=== PATIENT | female | born 1985 | race Caucasian/White ===

== ENCOUNTER 2021-07-24 07:13 | Inpatient (IN) ==
--- NOTE | 2021-07-19 19:12 | History & Physical Report ---
Date of Service July 19, 2021 Assessment & Plan (1) Encounter for supervision of normal in multigravida: (2) Preeclampsia: (3) Anxiety: Plan: Discussed with patient her history and diagnoses leading to planned delivery at 37wks. Given prior h/o c/s, patient desires repeat c/s. Risks, alternatives and complications reviewed and patient desires to proceed and consent reviewed and signed. Discussed her past c/s and the significant anxiety she feels when on the OR table before baby delivered. She states she would benefit from reassurance that she is doing well with anesthesia and comfort measures. She will remind us of this helpful measure on day of surgery. PATs today. OR in near future. History of Present Illness Chief Complaint: planned c/s Primary Care Provider: Nayeli Arboleda 36yo at 37 weeks on day of admission for planned repeat c/s in background of preeclampsia. Patient has carried diagnosis of preeclampsia without severe features. Notes prior c/s x 2 and desires repeat. Declines sterlization. Denies rodriguez, visual change or ruq pain. No worsening swelling today. +FM. PNC c/b 1. preeclampsia --growth us aga, nsts 2x/wk, wkly labs ok 2. prior c/s x 2 3. 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, spouse neg carrier PNL rh pos, ri, gbs neg OBH: c/s x 2, first breech, 2nd TOLAC but got chorio after 2d induction GYNH: nl paps, no stds Allergies Allergy/AdvReac Type Severity Reaction Status Date / Time No Known Allergies Allergy Verified 07/19/21 16:18 Home Medications Medication Instructions Recorded Confirmed Type prenat.vits,vladislav,izw-fumm-rpqoh 1 tab PO DAILY 05/12/20 07/19/21 History breast pump #1 ea 06/01/21 07/19/21 Rx Patient History Medical History History of chicken pox Surgical History S/P section S/P dilatation and curettage S/P tonsillectomy and adenoidectomy Family History Mother Hypertension Grandmother (Maternal) Hypertension Migraine headache Heart disease Grandfather (Maternal) Heart disease Denies family history of Ovarian cancer Prostate cancer Breast cancer Colorectal cancer Social History Smoking Status: Never smoker Hx Alcohol Use: No Hx Substance Use: No Preferred Language: Slovak 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 Beliefs That Will Affect Care: None marital status: Single marital status details: Cruzito Blood (35) [phone] Current Living Situation: Family Current Living Situation Comment: Lives with FOB, kids current occupational status: student 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
[~2021-07-24 07:13] MED LIST: CITRIC ACID/SODIUM CITRATE 15 ML UDC PO SCH
[2021-07-24] MEDS ORDERED: OXYTOCIN 10 UNITS/ML VIAL ONE (07:35)
[2021-07-24] MEDS ORDERED: SODIUM CHLORIDE 0.9% INJ 10 ML VIAL ONE (07:35)
[2021-07-24] MEDS ORDERED: fentaNYL citrate 100 MCG/2 ML VIAL ONE (07:35)
[2021-07-24] MEDS ORDERED: MoRPHine SULFATE PF 1 MG/ML 10 ML AMP/VIAL ONE (07:35)
[2021-07-24] MEDS ORDERED: ONDANSETRON INJ 2 MG/ML 2 ML VIAL ONE (07:35)
[2021-07-24] MEDS ORDERED: LACTATED RINGER'S 1,000 ML IV SCH ×3 (07:45→10:53)
[2021-07-24 07:52] LABS: Hematocrit (blood only) 32.6 % (37-47); Mean Corpuscular Hgb Conc 33.7 g/dL (32-36); Mean Platelet Volume 11.6 fL (7.4-10.4); Platelet Count 155 K/uL (130-400); RDW Coefficient of Variation 14.4 % (11.5-14.5); RDW Standard Deviation 44.7 fL (36.4-46.3); Red Blood Count 3.79 M/uL (4.2-5.4)
--- NOTE | 2021-07-24 08:56 | Anesthesiology Consultation ---
Date of Service July 24, 2021 Assessment & Plan (1) Encounter for pre-operative examination: Chart Review Chart Review: Acceptable Risk for Surgery and Patient NOT seen in Pre Admission Testing Consults Requested none History Surgery Operation Date: 07/24/21 09:20 Proposed Procedures p Section (Delivery of Baby Through Abdominal Incision) in LD - Brooke Ojeda MD, FACOG Operation Date: 08/07/21 07:30 Proposed Procedures p Section (Delivery of Baby through Abdominal Incision) - Suzette Cadet MD Height/Weight Height: 5 ft 6 in Weight: 102.965 kg Allergies Allergy/AdvReac Type Severity Reaction Status Date / Time No Known Allergies Allergy Verified 07/20/21 15:02 Medications Home Medications Medication Instructions Recorded Confirmed Last Taken prenat.vits,vladislav,hix-adkg-vbxiv 1 tab PO QAM 05/12/20 07/20/21 07/02/21 22:15 breast pump #1 ea 06/01/21 07/19/21 Unknown diphenhydramine HCl 25 mg capsule 25 mg PO HS PRN 07/20/21 07/20/21 Unknown (Benadryl) NPO Date Last Intake of Fluids: 07/23/21 Time Last Intake of Fluids: 22:30 Date Last Intake of Solids: 07/23/21 Time Last Intake of Solids: 16:00 Past Medical History Medical History Anxiety History of chicken pox Migraine Past Family History Family History Mother Hypertension Grandmother (Maternal) Hypertension Migraine headache Heart disease Grandfather (Maternal) Heart disease Denies family history of Ovarian cancer Prostate cancer Breast cancer Colorectal cancer Past Surgical History Surgical History S/P section X 2 S/P dilatation and curettage S/P tonsillectomy and adenoidectomy Age 13 Social History Smoking Status: Never smoker Do You Dip or Chew Tobacco: No Hx Alcohol Use: Yes Alcohol type: wine alcohol intake frequency: other Alcohol Intake Frequency Comment: 1 X A MONTH Hx Substance Use: No substance use type: does not use Physical Exam Vital Signs Last Vital Signs Temp 36.7 C 07/24/21 07:33 Pulse 93 H 07/24/21 07:33 Resp 20 07/24/21 07:33 BP 144/99 H 07/24/21 07:33 Testing Laboratory Results 07/24/21 07:30 Blood Type O Positive 07/24/21 07:28 Antibody Screen NEGATIVE 07/24/21 07:28
[2021-07-24] MEDS ORDERED: HYDROmorphone INJ 0.5 MG/0.5 ML SYR IV PRN (10:27)
[2021-07-24] MEDS ORDERED: MoRPHine SULFATE PF 1 MG/ML 10 ML AMP/VIAL INT SPINAL ONE (10:27)
[2021-07-24] MEDS ORDERED: NALOXONE HCL 0.08 MG in SYRINGE 1.8 ML IV PRN (10:27)
[2021-07-24] MEDS ORDERED: ACETAMINOPHEN 1000 MG/100 ML IV IV PRN (10:27)
[2021-07-24] MEDS ORDERED: NALOXONE HCL 1 MG in SODIUM CHLORIDE 0.9% 1000ML 1,000 ML IV PRN (10:27)
[2021-07-24] MEDS ORDERED: NALOXONE HCL 0.4 MG/1 ML VIAL/CARP IV PRN (10:27)
[2021-07-24] MEDS ORDERED: ONDANSETRON INJ 2 MG/ML 2 ML VIAL IV PRN (10:27)
[2021-07-24] MEDS ORDERED: LACTATED RINGER'S 500 ML IV PRN (10:27)
[2021-07-24] MEDS ORDERED: ePHEDrine sulfate 50 MG/ML AMP IV PRN (10:27)
[2021-07-24] MEDS ORDERED: NO NARCOTICS OR SEDATIVES SCH (10:30)
[2021-07-24] MEDS ORDERED: DC INTRASPINAL MORPHINE SCH (10:30)
[2021-07-24] MEDS ORDERED: SODIUM CHLORIDE 0.9% 1000ML 1,000 ML IV SCH (10:30)
--- NOTE | 2021-07-24 10:33 | Post Operative Brief Note ---
PG Immediate Post Op with CF Date of Surgery July 24, 2021 Pre & Post Diagnosis Operation Date: 07/24/21 09:20 Pre-Op Diagnosis: Prior section x2, desires repeat Preemplampsia 37 weeks EGA Post-Op Diagnosis: same Operation Date: 08/07/21 07:30 <No data on this case meets the specified criteria> I identified the patient and participated in the time-out.: Yes Procedure Operation Date: 07/24/21 09:20 <No data on this case meets the specified criteria> Repeatl Low Transverse Section Surgeon Brooke Ojeda MD, FACOG Chemical Lab Technician Dr. Bradford Estimated Blood Loss 600 Findings Consistent with Post-Op Diagnosis (viable male , apgars pending. normal uterus, tubes and ovaries bilaterally) Fluids 1600 Specimens Specimen Description: placenta-hold cord blood Drains Navas Catheter Anesthesia Type Spinal Complications none Disposition Accompanied Patient To Recovery: No Disposition: L&D
--- NOTE | 2021-07-24 10:35 | Operative Report ---
PG Post Operative Report Pre & Post Diagnosis Operation Date: 07/24/21 09:20 Pre-Op Diagnosis: Prior section x2, desires repeat Preemplampsia 37 weeks ega Post-Op Diagnosis: same Operation Date: 08/07/21 07:30 <No data on this case meets the specified criteria> I identified the patient and participated in the time-out.: Yes Procedure Operation Date: 07/24/21 09:20 <No data on this case meets the specified criteria> Repeat Low Transverse Section Surgeon Brooke Ojeda MD, FACOG Classifier Operator Dr. Bradford Estimated Blood Loss 600 Findings Consistent with Post-Op Diagnosis (viable male infant, apgars pending. normal uterus, tubes and ovaries bilaterally) Fluids 1600 Specimens placenta hold cord blood Drains foster Anesthesia Type Spinal Complications none Disposition Accompanied Patient To Recovery: No Disposition: L&D Indications 36yo at 37wks ega with diagnosis of preeclampsia without severe features for planned c/s due to prior c/s x 2, desires repeat. Consent signed. Description of Procedure The patient was taken to the operating room and identified. After adequate anesthesia was obtained, she was placed in the supine position with a leftward tilt on the operating table and prepped and draped in the usual sterile fashion. A foster catheter had already been placed. The knife was used to create a Pfannensteil skin incision that was carried down to the underlying layer of fascia. The fascia was nicked in the midline and this opening was extended laterally using Kevin scissors. Abi clamps were placed on the superior and inferior aspect of the fascial incision tenting it upward and the underlying rectus muscles were dissected off the overlying fascia both sharply and bluntly using Kevin scissors. The rectus muscles were bluntly in the midline. The peritoneal cavity was bluntly entered into. This opening was stretched. The bladder blade was placed. The vesicouterine peritoneum was elevated and opened up into and the bladder flap was created digitally and bladder blade was replaced. The knife was used to create a hysterotomy and this opening was stretched. The operators hand was placed through the hysterotomy and the bladder blade was removed. The head was elevated and flexed and with fundal pressure the head was delivered. The shoulders and body were rapidly delivered. The cord was clamped and cut and the 's mouth and nares were bulb suction. The [facility]. Cord blood was obtained. The placenta was manually expressed. The uterus was exteriorized and cleared of all clots and debris. Dilute IV Pitocin was begun. The uterine tone was improving. The hysterotomy was closed in a running interlocking fashion using 0 Vicryl followed by a second imbricating layer of 0 Vicryl. The hysterotomy was not hemostatic at midline and so additional figure of eight suture placed for excellent hemostasis. The posterior culdesac was suctioned. The uterus was returned to the abdomen. The gutters were cleared of all clots and debris. The hysterotomy was reinspected and noted to be hemostatic. The fascia was then closed in running fashion using 0 Vicryl. The subcutaneous fat was copiously irrigated and reapproximated using 2-0 chromic. The skin was closed in a subcuticular fashion using 4-0 Vicryl. At this point the procedure was terminated. The patient was transferred to the recovery room in stable condition. All sponge, lap and needle counts are correct x2. I attest to the content of the Intraoperative Record and any orders documented therein. Any exceptions are noted below. OB Procedure Charges 46559
[2021-07-24] MEDS ORDERED: ePHEDrine sulfate 50 MG/ML SYR ONE (10:38)
[2021-07-24] MEDS ORDERED: SENNA 8.6 MG TAB PO PRN (10:53)
[2021-07-24] MEDS ORDERED: SUPERCREAM 0.870% 15 GM JAR EXT PRN (10:53)
[2021-07-24] MEDS ORDERED: DIPHTHERIA/TETANUS/PERTUSSIS 0.5 ML SYR/VIAL IM ONE (10:53)
[2021-07-24] MEDS ORDERED: BENZOCAINE 20% AER SPR 82.5 GM CAN EXT PRN (10:53)
[2021-07-24] MEDS ORDERED: MAGNESIUM HYDROXIDE SUSP 30 ML UDC PO PRN (10:53)
[2021-07-24] MEDS ORDERED: HYDROCORTISONE ACETATE 25 MG SUPP PR PRN (10:53)
[2021-07-24] MEDS: diphenhydrAMINE 50 MG/ML VIAL IV PRN ×2 (11:14→19:06)
[2021-07-24] MEDS: OXYTOCIN 20 UNITS in LACTATED RINGER'S 1,000 ML IV SCH ×2 (12:11→20:10)
--- NOTE | 2021-07-24 12:53 | Anesthesiology Progress Note ---
Date of Service July 24, 2021 Anesthesia Post Procedure Vital Signs Vital Signs: Temp Pulse Resp BP Pulse Ox 07/24/21 12:46 98 H 97 07/24/21 12:45 90 136/65 07/24/21 12:41 86 97 07/24/21 12:36 88 98 07/24/21 12:35 86 139/67 07/24/21 12:31 82 97 07/24/21 12:26 88 97 07/24/21 12:25 83 16 121/80 07/24/21 12:21 77 98 07/24/21 12:16 87 98 07/24/21 12:15 74 121/80 07/24/21 12:11 78 97 07/24/21 12:06 82 97 07/24/21 12:05 82 117/77 07/24/21 12:01 78 96 07/24/21 11:56 82 96 07/24/21 11:55 36.7 C 75 20 118/75 07/24/21 11:51 85 94 07/24/21 11:46 86 97 07/24/21 11:45 88 18 125/84 07/24/21 11:41 88 94 07/24/21 11:36 77 96 07/24/21 11:35 82 16 124/79 07/24/21 11:31 85 96 07/24/21 11:26 76 97 07/24/21 11:25 18 123/63 07/24/21 11:21 85 95 07/24/21 11:16 87 95 07/24/21 11:15 83 18 126/67 07/24/21 11:11 78 93 07/24/21 11:06 74 98 07/24/21 11:05 74 20 115/65 07/24/21 11:01 85 92 07/24/21 10:56 72 98 07/24/21 10:55 36.5 C 70 18 107/61 07/24/21 10:51 77 98 07/24/21 10:47 69 107/64 92 07/24/21 10:46 67 98 07/24/21 09:16 83 135/83 07/24/21 07:33 36.7 C 93 H 20 144/99 H Transfer of Care Handoff Completed per policy Notes Mental Status: alert / awake / arousable and participated in evaluation Nausea / Vomiting: adequately controlled Pain: adequately controlled Airway Patency, RR, SpO2: stable & adequate BP & HR: stable & adequate Hydration State: stable & adequate Neuraxial Anesthesia: was administered and sensory block is resolving Anesthetic Complications: no major complications apparent and Pt Satisfied with anesthetic care
[2021-07-24] MEDS: KETOROLAC 30 MG/ML VIAL IV PRN ×2 (13:32→23:40)
[2021-07-24] MEDS: NALBUPHINE HCL INJ 10 MG/ML AMP IV PRN ×3 (14:10→20:31)
[2021-07-24] MEDS ORDERED: SODIUM CHLORIDE 0.9% 250 ML IV PRN (15:35)
[2021-07-24] MEDS: SIMETHICONE 80 MG CHEW PO SCH ×3 (17:38→20:10)
[2021-07-24] MEDS: DOCUSATE SODIUM 100 MG CAP PO SCH (20:10)
[2021-07-25] MEDS ORDERED: diphenhydrAMINE Capsule 25 MG CAP PO PRN (04:30)
[2021-07-25] MEDS ORDERED: diphenhydrAMINE 50 MG/ML VIAL IV PRN (04:30)
[2021-07-25] MEDS ORDERED: ZOLPIDEM TARTRATE 5 MG TAB PO PRN (04:30)
[2021-07-25] MEDS ORDERED: ONDANSETRON INJ 2 MG/ML 2 ML VIAL IV PRN (04:30)
[2021-07-25] MEDS ORDERED: PROMETHAZINE HCL 25 MG in SODIUM CHLORIDE 0.9% 50 ML IV PRN (04:30)
[2021-07-25] MEDS ORDERED: KETOROLAC 30 MG/ML VIAL IV PRN (04:30)
[2021-07-25] MEDS: oxyCODONE/ACETAMINOPHEN 5mg/325mg TAB PO PRN (05:26)
[2021-07-25] MEDS: IBUPROFEN 600 MG TAB PO PRN ×3 (05:27→19:33)
--- NOTE | 2021-07-25 06:48 | Obstetrical Progress Note ---
Date of Service <Dario Mohamud DO - Last Filed: 07/25/21 08:30> July 25, 2021 Assessment & Plan <Dario Mohamud DO - Last Filed: 07/25/21 08:30> (1) Encounter for care and examination after delivery: 36 yo post op day 1 from , doing well. -Continue routine post care. - vital sings reviewed and WNL. (Tmax 37.0) -Blood type O+, GBS -, Rubella Immune. -Encourage ambulation, monitor and control pain with Motrin, tylenol PRN, resume regular diet, monitor lochia. -encourage breast feeding -Discussed wound care with patient and recommended pads for her incision for the next few weeks. <Haider Bradford MD - Last Filed: 07/25/21 08:31> (1) Encounter for care and examination after delivery: Subjective <Dario Mohamud - Last Filed: 07/25/21 08:30> Ambulation: ambulating normally Voiding: no voiding problems Passing Gas:: Yes Diet Tolerance:: regular diet Lochia:: Small Feeding Type:: breast feeding (both breast feeding and bottle feeding) Current Pain Level(1-10): 0 Review of Systems Denies fever, chills, sweats Denies shortness of breath, difficulty breathing, chest pain, palpitations, chest pressure. Denies breast pain. Denies dysuria. Denies changes in vision. Headache this morning but better now. +itchy at legs and face from , but coming down. Physical Exam <Dario Mohamud DO - Last Filed: 07/25/21 08:30> General: Alert, oriented. No acute distress. Cardiac: Regular rate and rhythm, no murmurs/rubs/gallops. Respiratory: Clear to auscultation bilaterally a/p, no wheezes/rales/rhonchi. No increased work of breathing. Symmetrical chest rise. No respiratory distress. Abdomen: Soft, nontender, nondistended. Bowel sounds present. Uterus: Uterine fundus firm, palpable at umbilicus. Surgical scar clean and healing well, one area <1mm mild bleed at right side of scar. Lower Extremities: No lower extremity edema or swelling. No deep calf pain. Lorna's negative bilaterally Results & Data ([facility]) <DO Dieter Mendoza Last Filed: 07/25/21 08:30> Vital Signs (Past 12 Hours) Vital Signs Temp Pulse Pulse Pulse Resp BP Pulse Ox 07/25/21 04:35 36.6 C 81 18 109/72 100 07/25/21 04:27 18 100 07/25/21 03:30 18 99 07/25/21 02:47 18 96 07/25/21 01:15 18 97 07/25/21 00:15 18 97 07/24/21 23:45 36.9 C 74 18 110/74 99 07/24/21 22:00 16 99 07/24/21 21:00 16 98 07/24/21 20:00 16 100 07/24/21 19:10 37.0 C 75 16 119/74 100 07/24/21 19:00 16 100 <Haider Bradford MD - Last Filed: 07/25/21 08:31> Co-Signing Physician Notes Patient seen and evaluated and agree with the above findings and plan. Routine care Resident Activity Tracking <Dario Mohamud DO - Last Filed: 07/25/21 08:30> Resident Involvement: Resident Care Provided Care Provided: OB Delivery
[2021-07-25 07:44] LABS: Basophils # (auto) 0.02 K/uL (0-0.2); Basophils % (auto) 0.2 %; Eosinophils # (auto) 0.16 K/uL (0-0.5); Eosinophils % (auto) 1.9 %; Hemoglobin 9.9 g/dL (12.0-16.0); Immature Granulocytes # (auto) 0.03 K/uL (0.00-0.02); Immature Granulocytes % (auto) 0.4 %; Lymphocytes # (auto) 1.58 K/uL (1.2-3.4); Lymphocytes % (auto) 19.2 %; Mean Corpuscular Hemoglobin 29.1 pg (25-34); Mean Corpuscular Volume 88.2 fL (80-100); Mean Platelet Volume 11.4 fL (7.4-10.4); Monocytes % (auto) 9.7 %; Neutrophils # (auto) 5.65 K/uL (1.4-6.5); Neutrophils % (auto) 68.6 %; Platelet Count 136 K/uL (130-400); RDW Coefficient of Variation 14.6 % (11.5-14.5); White Blood Count 8.24 K/uL (4.8-10.8)
[2021-07-25] MEDS: SIMETHICONE 80 MG CHEW PO SCH ×4 (08:20→19:59)
[2021-07-25] MEDS: PRENATAL VITAMIN 1 TAB PO SCH (08:20)
[2021-07-25] MEDS: FERROUS SULFATE 325 MG TAB PO SCH (08:20)
[2021-07-25] MEDS: DOCUSATE SODIUM 100 MG CAP PO SCH ×2 (08:20→19:59)
--- NOTE | 2021-07-26 05:33 | Obstetrical Progress Note ---
Date of Service <Dario Arcehernandotom - Last Filed: 07/26/21 07:10> July 26, 2021 Assessment & Plan <Dario Mohamud - Last Filed: 07/26/21 07:10> (1) Encounter for care and examination after delivery: 36 yo post op day 2 from , doing well. -Continue routine post care. - vital sings reviewed and WNL. (Tmax 37.0) -Blood type O+, GBS -, Rubella Immune. -Encouraged ambulation, especially with patient feeling bloated. Monitor and control pain with Motrin, tylenol PRN, resume regular diet, monitor lochia. -encourage breast feeding -Discussed wound care with patient and recommended pads for her incision for the next few weeks. -Discussed discharge with patient if she feels ready today after ambulating more or tomorrow if she so chooses. Patient will follow up in OB clinic in 6 weeks. <Lauren Santos MD - Last Filed: 07/26/21 07:13> (1) Encounter for care and examination after delivery: Subjective <Dario Arceivon - Last Filed: 07/26/21 07:10> Ambulation: ambulating normally Voiding: no voiding problems Passing Gas:: Yes Diet Tolerance:: regular diet Lochia:: Small Feeding Type:: breast feeding Current Pain Level(1-10): 3 Review of Systems Denies fever, chills, sweats Denies shortness of breath, difficulty breathing, chest pain, palpitations, chest pressure. Denies breast pain. Denies dysuria. Denies headache or changes in vision Physical Exam <Dario Arceivon - Last Filed: 07/26/21 07:10> General: Alert, oriented. No acute distress. Cardiac: Regular rate and rhythm, no murmurs/rubs/gallops. Respiratory: Clear to auscultation bilaterally a/p, no wheezes/rales/rhonchi. No increased work of breathing. Symmetrical chest rise. No respiratory distress. Abdomen: Soft, nontender, nondistended. Bowel sounds present. Uterus: Uterine fundus firm, palpable at umbilicus. Surgical scar clean and healing well. Lower Extremities: No lower extremity edema or swelling. No deep calf pain. Lorna's negative bilaterally Results & Data ([facility]) <Dario Mohamud DO - Last Filed: 07/26/21 07:10> Vital Signs (Past 12 Hours) Vital Signs Temp Pulse Resp BP Pulse Ox 07/25/21 19:25 36.7 C 88 16 128/86 100 <Lauren Santos MD - Last Filed: 07/26/21 07:13> Co-Signing Physician Notes Resident Physician Supervision Note: I interviewed and examined the patient. Discussed with Dr. Mohamud and agree with findings and plan as documented in the note. Any exceptions or clarifications are listed here: [ ] Documented By: Lauren Santos MD, FACOG Resident Activity Tracking <Dario Mohamud DO - Last Filed: 07/26/21 07:10> Resident Involvement: Resident Care Provided Care Provided: OB Delivery
[2021-07-26 06:12] LABS: Hematocrit (blood only) 27.7 % (37-47); Hemoglobin 9.8 g/dL (12.0-16.0)
[2021-07-26] MEDS: oxyCODONE/ACETAMINOPHEN 5mg/325mg TAB PO PRN ×3 (06:51→18:36)
[2021-07-26] MEDS: PRENATAL VITAMIN 1 TAB PO SCH (08:36)
[2021-07-26] MEDS: DOCUSATE SODIUM 100 MG CAP PO SCH (08:36)
[2021-07-26] MEDS: FERROUS SULFATE 325 MG TAB PO SCH (08:37)
[2021-07-26] MEDS: SIMETHICONE 80 MG CHEW PO SCH ×3 (08:38→16:41)
[2021-07-26] MEDS: IBUPROFEN 600 MG TAB PO PRN ×2 (10:24→18:35)
--- NOTE | 2021-07-30 14:59 | Discharge Summary ---
Date of Service Day of admission: July 24, 2021 Day of discharge: July 26, 2021 Admission HPI Per Admitting Provider 36yo at 37 weeks on day of admission for planned repeat c/s in background of preeclampsia. Patient has carried diagnosis of preeclampsia without severe features. Notes prior c/s x 2 and desires repeat. Declines sterlization. Denies rodriguez, visual change or ruq pain. No worsening swelling today. +FM. PNC c/b 1. preeclampsia --growth us aga, nsts 2x/wk, wkly labs ok 2. prior c/s x 2 3. 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, spouse neg carrier PNL rh pos, ri, gbs neg OBH: c/s x 2, first breech, 2nd TOLAC but got chorio after 2d induction GYNH: nl paps, no stds Discharge Data Consultations 07/24/21 07:32 Consult Anesthesiology Stat Procedures Performed Operation Date: 07/24/21 09:20 Actual Procedures Repeat Low Transverse Section Operation Date: 08/07/21 07:30 <No data on this case meets the specified criteria> Hospital Course (1) Encounter for supervision of normal in multigravida: (2) Preeclampsia: The patient underwent the above stated procedure without incident and her postoperative course and recovery was uncomplicated. On her postoperative day #2 she was tolerating a regular diet, voiding spontaneously, ambulating without problem and was using oral meds for adequate pain control. Her postoperative hemoglobin was 9.8. She was given written and verbal discharge instructions and told to followup in office at 6wks. She was given appropriate pain medicine prescriptions. Coding Level of Care Code None Diagnoses Encounter for supervision of normal in multigravida Z34.80 Preeclampsia O14.90
== END 2021-07-26 19:30 | disposition home or self-care (01) | DRG 788 ==
LOC: 4S1 07:13 → 4S2 13:45 → EDSTATUS 08-07 07:30

== ENCOUNTER 2024-10-18 15:47 | Inpatient (IN) ==
--- NOTE | 2024-10-18 16:41 | History & Physical Report ---
Date of Service October 18, 2024 Assessment & Plan (1) Prior complicated by eclampsia in third trimester, antepartum: Plan: Blood pressures at home were elevated so far ones are here elevated there is 1 that is more elevated however this is when I was talking to her when the machine went off and she was not sitting with her feet on the floor. She does not have any obvious severe preeclampsia features she does have a past history of this and also some elevated pressures while in labor and delivery we will obtain labs and monitor closely Repeat section. The patient was counseled to the nature of the procedure including alternatives such as labor. Risks were discussed including bleeding infection injury to bowel bladder ureter vessels and even baby. The risks of internal organ injury were discussed as being higher with prior sections. Deep Vein Thrombosis, pulmonary embolus and breakdown of the incision discussed. Deep vein thrombosis pulmonary embolus hernia and failure of the incision to heal were discussed Patient verbalized understanding of this and was given ample time to ask questions Note I reviewed this case her [id number] is an RN and took her blood pressure and it was significantly elevated 150/110 and this was over 4 hours ago her pressures have been maintained added elevated level for more than 4 hours at this stage she can be diagnosed with gestational hypertension I reviewed the case with my partner Dr. Shi we plan on section tonight we did discuss increased risk of internal organ injury with 3 prior she wishes permanent sterilization we will plan salpingectomy History of Present Illness Primary Care Provider: Toan Ruelas DO Patient just over 37 weeks with a history of prior preeclampsia 3 prior sections decided to take her blood pressure at home multiple times as she was feeling off she initially had some shortness of breath but this resolved she had some right upper quadrant pain this resolved she also had a mild headache although this is also subsiding her baby is active she is scheduled for repeat section on October 30 Visit GILDA Calculator Estimated Delivery Date Method Current WG Current Estimate 11/06/24 LMP (Certain) 36w 6d LMP: 02/28/24 : 5 Full term: 3 Premature: 0 Total Number of Induced Abortions: 0 Total Number of Spontaneous Abortions: 1 Ectopics: 0 Multiple births: 0 Number of Living Children: 3 and Delivery Plans AMA Weekly NST's @ 36 weeks Previous x3--> breech at 36wk us Would like tubal with section C/S WITH TUBAL SCHEDULED FOR 10/30/[address] MORENO AND DR. VALENZUELAK ASSIST. 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, FOB negative JOE noted on US *Pt requesting MFM consult - 04/30 US, then appt later in the month Per MFM CONSULT: Growth US monthly at 28wk NST weekly at 32wk NST twice-weekly at 36wk (or 32 if on meds for HTN) Allergies Allergy/AdvReac Type Severity Reaction Status Date / Time No Known Drug Allergies Allergy Verified 10/15/24 10:25 Home Medications Medication Instructions Recorded Confirmed Type breast pump #1 ea 05/01/24 10/15/24 Rx aspirin 81 mg tablet,delayed 81 mg PO DAILY 05/27/24 10/18/24 History release (Adult Aspirin Regimen) vitamin with calcium 1 tab PO DAILY 05/27/24 10/18/24 History no.72-iron 27 mg-folic acid 1 mg tablet (WesTab Plus) ubidecarenone-omega 3-vit E 25 1 cap PO DAILY 05/27/24 10/18/24 History mg-150 (90-60) mg-200 unit capsule (Co Z-12-Lgbhniq E-Fish Oil) Patient History Medical History Carrier of spinal muscular atrophy Encounter for cosmetic procedure Anxiety Migraine Preeclampsia History of chicken pox Surgical History (Updated 10/18/24 @ 16:44 by Cathy Larsen RN) [place] teeth removed S/P tonsillectomy and adenoidectomy Age 13 S/P dilatation and curettage S/P section X 3 Family History Mother Hypertension Grandmother (Maternal) Hypertension Migraine headache Heart disease Grandfather (Maternal) Heart disease Myocardial infarction Denies family history of Ovarian cancer Prostate cancer Breast cancer Colorectal cancer Social History Smoking Status: Never smoker Second Hand Exposure: No; Do You Dip or Chew Tobacco: No; Hx Alcohol Use: No Hx Substance Use: No Preferred Language: Greenlandic Communication Ability: Effective Visual Impairment: No Limitations Hearing Ability: Normal Hypnotherapist Required: No Beliefs That Will Affect Care: None marital status: Single marital status details: Cruzito Blood (39) [phone] Current Living Situation: Spouse Current Living Situation Comment: Lives with spouse, 3 children, dog current occupational status: employed current occupation: [employer] How many Children do You have: 3 Other Information That Helps Us Care for You: No Feels Safe at Home: Yes Safety Concerns: Feels Safe At This Time Childhood Exposure to Second-Hand Smoke: Yes caffeine: Yes (coffee) Dental Care, Regularly: Yes Physical Activity Frequency: Does not Exercise Seatbelt Use: always Sunscreen Use: Yes Assistive Devices: None Physical Exam Constitutional: WD/WN, vitals as above well developed and well nourished Respiratory: normal respiratory effort, lungs clear to auscultation normal respiratory effort Cardiovascular: RRR, no murmur, no edema Gastrointestinal (Abdomen): normal bowel sounds, soft, nontender, no hepatosplenomegaly Results & Data Vital Signs (Past 12 Hours) Vital Signs Temp Pulse Resp BP 10/18/24 16:34 105 H 10/18/24 16:34 160/90 H 10/18/24 16:20 107 H 141/100 H 10/18/24 16:18 102 H 138/92 10/18/24 16:11 20 10/18/24 16:11 98.6 F 20 10/18/24 16:03 104 H 139/90 Coding Level of Care Code None Diagnoses Prior complicated by eclampsia in third trimester, antepartum O09.293
[2024-10-18 17:13] LABS: Protein Creatinine Ratio Urine 0.2 (0-0.2); Total Protein Urine Random 10.1 mg/dl (0-11.9)
[2024-10-18 17:21] LABS: Basophils # (auto) 0.03 K/uL (0.00-0.20); Basophils % (auto) 0.3 %; Eosinophils # (auto) 0.09 K/uL (0.00-0.50); Hematocrit (blood only) 34.4 % (37.0-47.0); Hemoglobin 11.7 g/dl (12.0-16.0); Immature Granulocytes # (auto) 0.05 K/uL (0.01-0.20); Immature Granulocytes % (auto) 0.5 %; Lymphocytes % (auto) 26.5 %; Mean Corpuscular Hemoglobin 29.6 pg (25.0-34.0); Mean Corpuscular Volume 87.1 fL (80.0-100.0); Mean Platelet Volume 12.5 fL (9.4-12.4); Monocytes # (auto) 0.91 K/uL (0.11-0.59); Monocytes % (auto) 9.7 %; Neutrophils # (auto) 5.84 K/uL (1.40-6.50); Platelet Count 153 K/uL (130-400); RDW Coefficient of Variation 14.7 % (11.5-14.5); RDW Standard Deviation 46.6 fL (36.4-46.3); Red Blood Count 3.95 M/uL (4.20-5.40); White Blood Count 9.42 K/ul (4.8-10.8)
[2024-10-18] MEDS: CALCIUM CARBONATE 500 MG CHEWABLE TAB PO PRN (17:27)
[2024-10-18 17:39] LABS: Albumin Globulin Ratio 1.1 (0.9-2); Albumin Level 3.6 gm/dl (3.4-5.0); BUN Creatinine Ratio 21.1 (10-20); Bilirubin,Total 0.3 mg/dl (0.2-1.0); Calcium 9.7 mg/dl (8.6-10.3); Creatinine Clr Calc Pharmacy 248.5 ml/min; Globulin 3.4 gm/dl (2.5-4.0); Potassium 3.7 mmol/L (3.5-5.1)
[2024-10-18] MEDS ORDERED: KETOROLAC 30 MG/ML VIAL ONE (18:29)
[2024-10-18] MEDS ORDERED: fentaNYL citrate PF 100 MCG/2 ML VIAL ONE (18:29)
[2024-10-18] MEDS ORDERED: ONDANSETRON INJ 2 MG/ML 2 ML VIAL ONE (18:29)
[2024-10-18] MEDS ORDERED: PHENYLEPHRINE HCL 25 MG/250 ML NSS IV ONE (18:29)
[2024-10-18] MEDS ORDERED: DEXAMETHASONE SOD INJ 4 MG/ML VIAL ONE (18:29)
[2024-10-18] MEDS ORDERED: OXYTOCIN 10 UNITS/ML VIAL ONE (18:29)
[2024-10-18] MEDS ORDERED: MoRPHine SULFATE PF 1 MG/ML 10 ML AMP/VIAL ONE (18:29)
[2024-10-18] MEDS: SODIUM CHLORIDE 0.9% 1,000 ML IV SCH (18:40)
[2024-10-18] MEDS ORDERED: ceFAZolin 3000MG 3,000 MG/72.5 ML BAG IV SCH (18:45)
[2024-10-18] MEDS: CITRIC ACID/SODIUM CITRATE 15 ML UDC PO SCH (18:48)
--- NOTE | 2024-10-18 18:49 | Anesthesiology Consultation ---
Date of Service October 18, 2024 Assessment & Plan Chart Review Chart Review: Patient NOT seen in Pre Admission Testing urgent procedure Consults Requested none History Height/Weight Height: 5 ft 6 in Weight: 105.233 kg Allergies Allergy/AdvReac Type Severity Reaction Status Date / Time No Known Drug Allergies Allergy Verified 10/15/24 10:25 Medications Home Medications Medication Instructions Recorded Confirmed Last Taken breast pump #1 ea 05/01/24 10/15/24 Unknown aspirin 81 mg tablet,delayed 81 mg PO DAILY 05/27/24 10/18/24 10/17/24 21:00 release (Adult Aspirin Regimen) vitamin with calcium 1 tab PO DAILY 05/27/24 10/18/24 10/17/24 21:00 no.72-iron 27 mg-folic acid 1 mg tablet (WesTab Plus) ubidecarenone-omega 3-vit E 25 1 cap PO DAILY 05/27/24 10/18/24 10/17/24 21:00 mg-150 (90-60) mg-200 unit capsule (Co G-12-Qmbnqgx E-Fish Oil) Active Medications Generic Name Dose Route Start Last Admin Trade Name Freq PRN Reason Stop Dose Admin Calcium Carbonate 500 mg 10/18/24 17:01 10/18/24 17:27 Calcium Carbonate 500 Mg Chewable Tab PO 11/17/24 17:00 500 mg Q4 PRN Administration Indigestion Past Medical History Medical History Carrier of spinal muscular atrophy Encounter for cosmetic procedure Anxiety Migraine Preeclampsia History of chicken pox Past Family History Family History Mother Hypertension Grandmother (Maternal) Hypertension Migraine headache Heart disease Grandfather (Maternal) Heart disease Myocardial infarction Denies family history of Ovarian cancer Prostate cancer Breast cancer Colorectal cancer Past Surgical History Surgical History [place] teeth removed S/P tonsillectomy and adenoidectomy Age 13 S/P dilatation and curettage S/P section X 3 Social History Smoking Status: Never smoker Do You Dip or Chew Tobacco: No Hx Alcohol Use: No Alcohol type: wine alcohol intake frequency: other Hx Substance Use: No substance use type: does not use Physical Exam Vital Signs Last Vital Signs Temp 98.6 F 10/18/24 16:41 Pulse 101 H 10/18/24 18:01 Resp 20 10/18/24 16:41 BP 142/96 H 10/18/24 18:01 Testing Laboratory Results 10/18/24 17:03 10/18/24 17:03
[2024-10-18] MEDS: ACETAMINOPHEN 500 MG TAB PO SCH (18:52)
[2024-10-18] MEDS ORDERED: SODIUM CHLORIDE 0.9% 50 ML IV PRN (18:57)
[2024-10-18] MEDS ORDERED: SODIUM CHLORIDE 0.9% 100 ML IV PRN (18:57)
[2024-10-18] MEDS: ceFAZolin 3,000 MG in DEXTROSE 5% 50 ML IV SCH (19:15)
[2024-10-18] MEDS ORDERED: PHENYLEPHRINE 100MCG/ML 5ML SYR ONE (19:54)
[2024-10-18] MEDS ORDERED: ONDANSETRON INJ 2 MG/ML 2 ML VIAL IV PRN (19:56)
[2024-10-18] MEDS ORDERED: diphenhydrAMINE 50 MG/ML VIAL IV PRN ×3 (19:56→21:16)
[2024-10-18] MEDS ORDERED: NALOXONE HCL 0.4 MG/1 ML VIAL/CARP IV PRN ×2 (19:56→21:16)
[2024-10-18] MEDS ORDERED: NALOXONE HCL 1 MG in SODIUM CHLORIDE 0.9% 1,000 ML IV PRN ×2 (19:56→21:16)
[2024-10-18] MEDS ORDERED: PROMETHAZINE 6.25 MG/50.25 ML BAG IV PRN (19:56)
[2024-10-18] MEDS ORDERED: ePHEDrine sulfate 50 MG/ML AMP IV PRN (19:56)
[2024-10-18] MEDS ORDERED: NO NARCOTICS OR SEDATIVES SCH ×2 (20:00→21:30)
[2024-10-18] MEDS ORDERED: DC INTRASPINAL MORPHINE SCH ×2 (20:00→21:30)
--- NOTE | 2024-10-18 20:26 | Operative Report ---
Post Operative Report Pre & Post Diagnosis Operation Date: 10/18/24 18:50 Pre-Op Diagnosis: Prior complicated by eclampsia in third trimester, antepartum I identified the patient and participated in the time-out.: Yes Procedure Operation Date: 10/18/24 18:50 Actual Procedures p Section in LD of a LFC and bilateral salpingectomy @194(Bilateral) - Charmaine Doan MD, FACOG Surgeon Charmaine Doan MD, FACOG Heel Blacker Dr. Shi Quantitative Blood Loss (QBL) 319 Findings Consistent with Post-Op Diagnosis Specimens Cord blood bilateral fallopian tubes Description of Procedure Regional anesthetic had been given by anesthesia patient was prepped and draped with a leftward tilt preoperative antibiotics had been given in appropriate timing by anesthesiology. Once the prep was allowed to fully dry timeout was performed. Pickups with teeth were used to test the incision area was found to be adequate for incision as the patient did not feel sharp pain. Scalpel was used to make a Pfannenstiel incision on the lower abdomen. We then cut through the subcutaneous fat down to the level of the anterior rectus sheath fascia this was cut in the midline and then extended laterally with the curved Kevin scissors. At this stage we then placed 2 Abi clamps on the anterior aspect of the fascia. Using the curved Kevin's we are able to dissect the fascia superiorly away from the rectus muscles. Care was taken to maintain hemostasis. Abi clamps were then placed to the inferior aspect of the anterior sheath of the fascia. Fascia was then dissected away from the rectus muscles inferiorly towards the pubic bone. A Abi was then placed in the midline both inferiorly and superiorly. This was to allow exposure by retraction rectus muscles were in the midline with were then able to cut through the peritoneum and then enter the peritoneal cavity. Opening was enlarged to allow exposure of the peritoneal cavity both superiorly and inferiorly. Once adequate space was obtained a bladder retractor was placed to expose the lower segment Metzenbaums were used to dissect the bladder flap inferiorly away from the uterus. This was done sharply bladder retractor was then repositioned to expose the lower segment of the uterus Fresh scalpel was used to make a low transverse incision on the uterus. Uterus was then entered bluntly with the operators finger, membranes ruptured and the opening was enlarged using the operators fingers bluntly pulling superiorly and inferiorly to allow exposure. Baby was delivered by first bilateral footling breech and was able to grab the feet elevated amount of incision keep the back anterior and then gently put traction on the baby sweeping the arms across the chest and then delivering the head by preventing extension of the neck by placing a finger gently in the mouth combined with abdominal pressure from the camp assistant female . Live vigorous . Fluid was clear cord clamped and cut cord gases obtained cord blood obtained baby handed to pediatrics. Placenta removed was removed with traction we ensure the entire placenta was removed with a moist lap sponge into the uterus Uterus was then exteriorized. IV Pitocin had been started by anesthesia tone improved there were no extensions the uterus was then closed using 0 Monocryl in a 2 layer closure the first layer closed in a running locked fashion from left to right and then a second closure from left to right in a running nonlocked fashion. At this stage hemostasis was excellent. Attention was then placed to the right fallopian tube grasping with a [place] using the LigaSure device coagulating and cut and repeated steps to separate the fallopian tube from the mesosalpinx tube was then cracked cross-section with the LigaSure hemostasis was excellent same exact process was repeated on the left side both tubes sent to pathology uterus was placed back in the peritoneal cavity with suction irrigation out and inspection of the uterus at this stage revealed excellent hemostasis. Some slight wooziness over the uterus was countered with PE RCL OT at the end hemostasis was excellent Retractors were removed urine color was clear at this stage of the case we inspected the rectus muscles they were hemostatic fascia was closed with 0 Vicryl subcutaneous fat was irrigated and closed with 3-0 Vicryl skin closed with 4-0 subcuticular Monocryl I attest to the content of the Intraoperative Record and any orders documented therein. Any exceptions are noted below. OB Procedure Charges [id number] Add on Tubal for C/S
[2024-10-18] MEDS ORDERED: SENNA 8.6 MG TAB PO PRN (20:38)
[2024-10-18] MEDS ORDERED: HYDROCORTISONE ACETATE 25 MG SUPP PR PRN (20:38)
[2024-10-18] MEDS ORDERED: BENZOCAINE 20% SPRY 85 APPLN/85 GM CAN EXT PRN (20:38)
[2024-10-18] MEDS ORDERED: MAGNESIUM HYDROXIDE SUSP 30 ML UDC PO PRN (20:38)
[2024-10-18] MEDS: MoRPHine SULFATE PF 1 MG/ML 10 ML AMP/VIAL INT SPINAL ONE (21:05)
[2024-10-18] MEDS: DIPHTHER/TETAN/PERTUS Vaccine (Tdap, Adol/Adult) 0.5mL IM ONE (21:06)
[2024-10-18] MEDS: OXYTOCIN 20 UNITS/LR 1,002 ML IV SCH (21:07)
--- NOTE | 2024-10-18 21:12 | Anesthesiology Progress Note ---
Date of Service October 18, 2024 Anesthesia Post Procedure Vital Signs Vital Signs: Temp Pulse Resp BP Pulse Ox 10/18/24 21:09 92 10/18/24 21:09 89 10/18/24 21:07 91 H 10/18/24 21:07 140/67 10/18/24 21:06 98 10/18/24 21:06 94 H 10/18/24 21:01 98 10/18/24 21:01 97 H 10/18/24 20:57 93 H 10/18/24 20:57 126/77 10/18/24 20:56 22 10/18/24 20:56 97 10/18/24 20:56 93 H 10/18/24 20:51 99 10/18/24 20:51 99 H 10/18/24 20:47 99 H 10/18/24 20:47 117/60 10/18/24 20:46 16 10/18/24 20:46 97 10/18/24 20:46 100 H 10/18/24 20:41 95 10/18/24 20:41 97 H 10/18/24 20:39 91 10/18/24 20:39 82 10/18/24 20:36 18 10/18/24 20:36 95 10/18/24 20:36 82 10/18/24 20:36 112/60 10/18/24 20:31 94 10/18/24 20:31 75 10/18/24 20:27 94 10/18/24 20:27 86 10/18/24 20:26 97.9 F 20 98 10/18/24 20:26 95 10/18/24 20:26 90 10/18/24 20:26 128/58 L 10/18/24 19:14 100 H 10/18/24 19:14 142/97 H 10/18/24 18:01 101 H 10/18/24 18:01 142/96 H 10/18/24 16:41 98.6 F 105 H 20 160/90 H 10/18/24 16:34 105 H 10/18/24 16:34 160/90 H 10/18/24 16:20 107 H 141/100 H 10/18/24 16:18 102 H 138/92 10/18/24 16:11 20 10/18/24 16:11 98.6 F 20 10/18/24 16:03 104 H 139/90 Transfer of Care Handoff Completed per policy Notes Mental Status: alert / awake / arousable and participated in evaluation Patient Amnestic to Procedure: No Nausea / Vomiting: adequately controlled Pain: adequately controlled Airway Patency, RR, SpO2: stable & adequate BP & HR: stable & adequate Hydration State: stable & adequate Neuraxial Anesthesia: was administered and sensory block is resolving Anesthetic Complications: no major complications apparent and Pt Satisfied with anesthetic care
[2024-10-18] MEDS ORDERED: NALOXONE HCL 0.08 MG in SYRINGE 1.8 ML IV PRN (21:16)
[2024-10-18] MEDS ORDERED: NALBUPHINE HCL INJ 10 MG/ML AMP IV PRN (21:16)
[2024-10-18] MEDS: NALBUPHINE HCL INJ 10 MG/ML AMP IV PRN (21:36)
[2024-10-18] MEDS ORDERED: Nursing to Pharmacy Communication SCH (21:45)
[2024-10-18] MEDS: SIMETHICONE 80 MG CHEW PO SCH (22:07)
[2024-10-18] MEDS: DOCUSATE SODIUM 100 MG CAP PO SCH (22:07)
[2024-10-19] MEDS ORDERED: Nursing to Pharmacy Communication SCH (01:15)
[2024-10-19] MEDS: ACETAMINOPHEN 325 MG TAB PO SCH (02:53)
[2024-10-19] MEDS: KETOROLAC 30 MG/ML VIAL IV SCH (02:54)
[2024-10-19] MEDS: SODIUM CHLORIDE 0.9% 1,000 ML IV SCH ×2 (05:27→21:27)
[2024-10-19 06:10] LABS: Basophils # (auto) 0.02 K/uL (0.00-0.20); Basophils % (auto) 0.2 %; Eosinophils # (auto) 0.02 K/uL (0.00-0.50); Eosinophils % (auto) 0.2 %; Hematocrit (blood only) 30.8 % (37.0-47.0); Hemoglobin 10.5 g/dl (12.0-16.0); Immature Granulocytes # (auto) 0.06 K/uL (0.01-0.20); Immature Granulocytes % (auto) 0.5 %; Lymphocytes # (auto) 2.25 K/uL (1.20-3.40); Lymphocytes % (auto) 18.8 %; Mean Corpuscular Hemoglobin 30.1 pg (25.0-34.0); Mean Corpuscular Hgb Conc 34.1 g/dL (32.0-36.0); Mean Corpuscular Volume 88.3 fL (80.0-100.0); Mean Platelet Volume 12.3 fL (9.4-12.4); Monocytes # (auto) 0.98 K/uL (0.11-0.59); Monocytes % (auto) 8.2 %; Neutrophils # (auto) 8.63 K/uL (1.40-6.50); Neutrophils % (auto) 72.1 %; Platelet Count 137 K/uL (130-400); RDW Coefficient of Variation 14.8 % (11.5-14.5); RDW Standard Deviation 47.3 fL (36.4-46.3); Red Blood Count 3.49 M/uL (4.20-5.40); White Blood Count 11.96 K/ul (4.8-10.8)
--- NOTE | 2024-10-19 06:33 | Obstetrical Progress Note ---
Date of Service October 19, 2024 Assessment & Plan (1) Prior complicated by eclampsia in third trimester, antepartum: Postoperative day #1 from section blood pressures have been stable we will continue current care Subjective Ambulation: ambulating normally Voiding: no voiding problems Passing Gas:: Yes Diet Tolerance:: regular diet Lochia:: Small Physical Exam Constitutional WD/WN, vitals as above well developed and well nourished Respiratory normal respiratory effort, lungs clear to auscultation normal respiratory effort Cardiovascular RRR, no murmur, no edema Gastrointestinal (Abdomen) normal bowel sounds, soft, nontender, no hepatosplenomegaly Results & Data Vital Signs (Past 12 Hours) Vital Signs Temp Pulse Pulse Resp BP BP Pulse Ox 10/19/24 05:00 16 98 10/19/24 04:00 18 94 10/19/24 03:15 98.2 F 87 18 122/76 96 10/19/24 03:00 16 91 10/19/24 02:00 16 96 10/19/24 01:00 18 96 10/19/24 00:45 97.9 F 94 H 18 133/75 95 10/18/24 22:41 96 10/18/24 22:41 89 10/18/24 22:38 94 10/18/24 22:38 98 H 10/18/24 22:36 95 10/18/24 22:36 94 H 10/18/24 22:31 96 10/18/24 22:31 91 H 10/18/24 22:26 97.9 F 18 10/18/24 22:26 95 10/18/24 22:26 83 10/18/24 22:26 129/75 10/18/24 22:23 94 10/18/24 22:23 92 H 10/18/24 22:21 96 10/18/24 22:21 86 10/18/24 22:17 78 10/18/24 22:17 135/78 10/18/24 22:16 96 10/18/24 22:16 77 10/18/24 22:11 98 10/18/24 22:11 88 10/18/24 22:07 80 10/18/24 22:07 137/86 10/18/24 22:06 99 10/18/24 22:06 79 10/18/24 22:01 97 10/18/24 22:01 84 10/18/24 21:57 95 H 10/18/24 21:57 145/91 H 10/18/24 21:56 18 99 10/18/24 21:56 98 10/18/24 21:56 96 H 10/18/24 21:51 97 10/18/24 21:51 82 10/18/24 21:47 74 10/18/24 21:47 136/81 10/18/24 21:46 98 10/18/24 21:46 74 10/18/24 21:41 99 10/18/24 21:41 74 10/18/24 21:37 81 10/18/24 21:37 141/92 H 10/18/24 21:36 99 10/18/24 21:36 79 10/18/24 21:31 98 10/18/24 21:31 81 10/18/24 21:27 80 10/18/24 21:27 126/79 10/18/24 21:26 20 10/18/24 21:26 20 10/18/24 21:26 20 10/18/24 21:26 98 10/18/24 21:26 84 10/18/24 21:21 97 10/18/24 21:21 87 10/18/24 21:17 115 H 10/18/24 21:17 148/79 H 10/18/24 21:16 99 10/18/24 21:16 88 10/18/24 21:11 98 10/18/24 21:11 90 10/18/24 21:09 92 10/18/24 21:09 89 10/18/24 21:07 91 H 10/18/24 21:07 140/67 10/18/24 21:06 20 10/18/24 21:06 98 10/18/24 21:06 94 H 10/18/24 21:01 98 10/18/24 21:01 97 H 10/18/24 20:57 93 H 10/18/24 20:57 126/77 10/18/24 20:56 22 10/18/24 20:56 97 10/18/24 20:56 93 H 10/18/24 20:51 99 10/18/24 20:51 99 H 10/18/24 20:47 99 H 10/18/24 20:47 117/60 10/18/24 20:46 16 10/18/24 20:46 97 10/18/24 20:46 100 H 10/18/24 20:41 95 10/18/24 20:41 97 H 10/18/24 20:39 91 10/18/24 20:39 82 10/18/24 20:36 18 10/18/24 20:36 95 10/18/24 20:36 82 10/18/24 20:36 112/60 10/18/24 20:31 94 10/18/24 20:31 75 10/18/24 20:27 94 10/18/24 20:27 86 10/18/24 20:26 97.9 F 20 98 10/18/24 20:26 95 10/18/24 20:26 90 10/18/24 20:26 128/58 L 10/18/24 19:14 100 H 10/18/24 19:14 142/97 H O2 Del Method 10/19/24 05:00 10/19/24 04:00 10/19/24 03:15 Room Air 10/19/24 03:00 10/19/24 02:00 10/19/24 01:00 10/19/24 00:45 Room Air 10/18/24 22:41 10/18/24 22:41 10/18/24 22:38 10/18/24 22:38 10/18/24 22:36 10/18/24 22:36 10/18/24 22:31 10/18/24 22:31 10/18/24 22:26 10/18/24 22:26 10/18/24 22:26 10/18/24 22:26 10/18/24 22:23 10/18/24 22:23 10/18/24 22:21 10/18/24 22:21 10/18/24 22:17 10/18/24 22:17 10/18/24 22:16 10/18/24 22:16 10/18/24 22:11 10/18/24 22:11 10/18/24 22:07 10/18/24 22:07 10/18/24 22:06 10/18/24 22:06 10/18/24 22:01 10/18/24 22:01 10/18/24 21:57 10/18/24 21:57 10/18/24 21:56 10/18/24 21:56 10/18/24 21:56 10/18/24 21:51 10/18/24 21:51 10/18/24 21:47 10/18/24 21:47 10/18/24 21:46 10/18/24 21:46 10/18/24 21:41 10/18/24 21:41 10/18/24 21:37 10/18/24 21:37 10/18/24 21:36 10/18/24 21:36 10/18/24 21:31 10/18/24 21:31 10/18/24 21:27 10/18/24 21:27 10/18/24 21:26 10/18/24 21:26 10/18/24 21:26 10/18/24 21:26 10/18/24 21:26 10/18/24 21:21 10/18/24 21:21 10/18/24 21:17 10/18/24 21:17 10/18/24 21:16 10/18/24 21:16 10/18/24 21:11 10/18/24 21:11 10/18/24 21:09 10/18/24 21:09 10/18/24 21:07 10/18/24 21:07 10/18/24 21:06 10/18/24 21:06 10/18/24 21:06 10/18/24 21:01 10/18/24 21:01 10/18/24 20:57 10/18/24 20:57 10/18/24 20:56 10/18/24 20:56 10/18/24 20:56 10/18/24 20:51 10/18/24 20:51 10/18/24 20:47 10/18/24 20:47 10/18/24 20:46 10/18/24 20:46 10/18/24 20:46 10/18/24 20:41 10/18/24 20:41 10/18/24 20:39 10/18/24 20:39 10/18/24 20:36 10/18/24 20:36 10/18/24 20:36 10/18/24 20:36 10/18/24 20:31 10/18/24 20:31 10/18/24 20:27 10/18/24 20:27 10/18/24 20:26 10/18/24 20:26 10/18/24 20:26 10/18/24 20:26 10/18/24 19:14 10/18/24 19:14
[2024-10-19] MEDS: CALCIUM CARBONATE 500 MG CHEWABLE TAB PO PRN (08:20)
[2024-10-19] MEDS: PRENATAL VITAMIN 1 TAB PO SCH (08:21)
[2024-10-19] MEDS: FERROUS SULFATE 325 MG TAB PO SCH (08:21)
[2024-10-19] MEDS ORDERED: ACETAMINOPHEN 325 MG TAB PO SCH (08:30)
[2024-10-19] MEDS: NALOXONE HCL 0.08 MG in SYRINGE 1.8 ML IV PRN (11:35)
[2024-10-19] MEDS ORDERED: diphenhydrAMINE Capsule 25 MG CAP PO PRN (14:00)
[2024-10-19] MEDS ORDERED: HYDROmorphone INJ 0.5 MG/0.5 ML SYR IV PRN (14:00)
[2024-10-19] MEDS ORDERED: PROMETHAZINE 12.5 MG/50.5 ML BAG IV PRN (14:00)
[2024-10-19] MEDS ORDERED: ONDANSETRON INJ 2 MG/ML 2 ML VIAL IV PRN (14:00)
[2024-10-19] MEDS ORDERED: diphenhydrAMINE 50 MG/ML VIAL IV PRN (14:00)
[2024-10-19] MEDS ORDERED: KETOROLAC 30 MG/ML VIAL IV PRN (20:20)
[2024-10-19] MEDS: bisacodyL 5 MG TABEC PO SCH (20:42)
[2024-10-19] MEDS: LIDOCAINE 2% JELLY 5 ML TUBE EXT ONE (20:44)
[2024-10-19] MEDS: ceFAZolin 3000MG 3,000 MG/72.5 ML BAG IV SCH (21:27)
[2024-10-20] MEDS: IBUPROFEN 600 MG TAB PO SCH (02:57)
[2024-10-20] MEDS: oxyCODONE HCL IR 5 MG TAB (IMMEDIATE RELEASE) PO PRN (03:00)
[2024-10-20 06:22] LABS: Hematocrit (blood only) 28.2 % (37.0-47.0); Hemoglobin 9.6 g/dl (12.0-16.0)
--- NOTE | 2024-10-20 07:21 | Obstetrical Progress Note ---
Date of Service October 20, 2024 Assessment & Plan (1) delivery delivered: Plan 2nd POD following . Baby doing well. Mom having belly distension. Look gassy. Added Miralax 34 gm Daily. Continue care as per protocol. Encouraged nursing with mother's milk. Encouraged ambulation. Encouraged deep breathing. Not ready for Discharge today. Admission and Anticipated Discharge Date Admission Date: October 18, 2024 Supervising Physician Co-Signing Physician Notes Resident Physician Supervision Note: I interviewed and examined the patient. Discussed with Dr. Figueroa and agree with findings and plan as documented in the note. Any exceptions or clarifications are listed here: Patient notes she had a bit of a breakdown last night. She got very gassy and had gas pains all the way up into her upper belly that made it difficult for her to take a big breath. she notes she sat on the toilet for two hours last night and finally passed gas. Pain was not well controlled, baby was cluster feeding. Doing better this am. Gas pain a but better but still notes belly tenderness. abd distended, tympanic, soft, appropriately tender. Incision c/d/i. Discussed methods for gas pain, encourage ambulation. Documented By: Lexus Shi MD, FACOG Subjective 39 years, 2nd POD following delivery C/O Distension of belly, not aware of passing gas. Baby doing well. Pain: Mild, intermittent, manageable on painkillers. Lochia: Moderate Diet: Regular OB diet Gas: Not aware of passing Peeing: Passed Urine after foster's removal Ambulation: to Bathroom/ Corridor without any complication Answered her queries. Review of Systems Review of Systems: No SOB, chest pain, leg pain No dizziness, headache, palpitation No Blurring of vision , fever Physical Exam Physical Exam: General: Alert and oriented. No acute distress. CVS: S1 S2+ No murmurs, regular rhythm. Respiratory: CTA bilaterally. No rhonchi, wheezes, or crackles. No increased work of breathing. Abdomen: Bowel sound +. Gaseous distension noted Uterus: Uterus dcould not be palpated d/t distension. Incision site looks healthy: Dry, No swelling, Erythema Lower extremities: No LE edema. No deep calf pain. Results & Data Vital Signs (Past 12 Hours) Vital Signs Temp Pulse Resp BP Pulse Ox O2 Del Method 10/20/24 00:15 36.5 C 86 20 137/85 98 Room Air 10/19/24 20:15 36.5 C 92 H 20 135/84 99 Room Air Resident Activity Tracking Resident Involvement: Resident Care Provided Care Provided: OB Delivery
[2024-10-20] MEDS: POLYETHYLENE (MIRALAX) 17 GM PACK PO SCH (07:55)
[2024-10-20] MEDS ORDERED: bisacodyL 10 MG SUPP PR PRN (20:20)
[2024-10-21] MEDS: IBUPROFEN 600 MG TAB PO PRN (02:51)
[2024-10-21] MEDS: ACETAMINOPHEN 325 MG TAB PO PRN (02:51)
[2024-10-21 04:08] VITALS: O2SAT 98
--- NOTE | 2024-10-21 06:43 | Obstetrical Progress Note ---
Date of Service October 21, 2024 Assessment & Plan (1) delivery delivered: Plan: 3rd POD following . Mom and Baby doing well Encouraged ambulation. Ready for Discharge today. Plan Admission and Anticipated Discharge Date Admission Date: October 18, 2024 Supervising Physician Co-Signing Physician Notes Resident Physician Supervision Note: I interviewed and examined the patient. Discussed with Dr. Boudreaux and agree with findings and plan as documented in the note. Any exceptions or clarifications are listed here: POD#3 doing well. DC home. Instructions reviewed. Rx Percocet #10 tabs sent to pharmacy on file. 6w followup in office. Documented By: Joy Garcia, Subjective 39 years,3rd POD following delivery No active complain today, Belly distension has decreased Passed gas and had BM both. Baby doing well. Pain: Mild, intermittent, manageable on painkillers. Lochia: Moderate Diet: Regular OB diet Peeing: Passed Urine after foster's removal Ambulation: to Bathroom/ Corridor without any complication Answered her queries. Review of Systems Review of Systems: No SOB, chest pain, leg pain No dizziness, headache, palpitation No Blurring of vision , fever Physical Exam Physical Exam: General: Alert and oriented. No acute distress. CVS: well perfused Respiratory No increased work of breathing. Abdomen: Bowel sound + Uterus: Uterus could not be palpated d/t distension. Incision site looks healthy: Dry, No swelling, Erythema Lower extremities: No LE edema. No deep calf pain. Results & Data Vital Signs (Past 12 Hours) Vital Signs Temp Pulse Resp BP Pulse Ox O2 Del Method 10/21/24 02:55 36.4 C L 71 16 128/85 98 Room Air 10/20/24 19:45 36.5 C 89 16 144/87 H 100 Room Air Resident Activity Tracking Resident Involvement: Resident Care Provided Care Provided: OB Delivery
[2024-10-21 07:55] VITALS: BP 130/83; PULSE 77; RESP 20; TEMP 97.3
--- NOTE | 2024-10-22 12:03 | Discharge Summary ---
Date of Service October 22, 2024 Admission HPI Per Admitting Provider Patient just over 37 weeks with a history of prior preeclampsia 3 prior sections decided to take her blood pressure at home multiple times as she was feeling off she initially had some shortness of breath but this resolved she had some right upper quadrant pain this resolved she also had a mild headache although this is also subsiding her baby is active she is scheduled for repeat section on October 30 Visit GILDA Calculator Estimated Delivery Date Method Current WG Current Estimate 11/06/24 LMP (Certain) 36w 6d LMP: 02/28/24 : 5 Full term: 3 Premature: 0 Total Number of Induced Abortions: 0 Total Number of Spontaneous Abortions: 1 Ectopics: 0 Multiple births: 0 Number of Living Children: 3 and Delivery Plans AMA Weekly NST's @ 36 weeks Previous x3--> breech at 36wk us Would like tubal with section C/S WITH TUBAL SCHEDULED FOR 10/30/[address] GARCIA AND DR. VALENZUELAK ASSIST. 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, FOB negative JOE noted on US *Pt requesting MFM consult - 04/30 US, then appt later in the month Per MFM CONSULT: Growth US monthly at 28wk NST weekly at 32wk NST twice-weekly at 36wk (or 32 if on meds for HTN) Admission Exam (Per Admitting) Constitutional WD/WN, vitals as above well developed and well nourished Respiratory normal respiratory effort, lungs clear to auscultation normal respiratory effort Cardiovascular RRR, no murmur, no edema Gastrointestinal (Abdomen) normal bowel sounds, soft, nontender, no hepatosplenomegaly Discharge Data Consultations 10/18/24 18:19 Consult Anesthesiology Stat Procedures Performed Operation Date: 10/18/24 18:50 Actual Procedures p Section in LD of a LFC @1941(Bilateral) - Charmaine Doan MD, FACOG s Post Tubal Ligation Labor & Deliv(Bilateral) - Charmaine Doan MD, FACOG Hospital Course (1) delivery delivered: 3rd POD following . Mom and Baby doing well Encouraged ambulation. Ready for Discharge today. Plan Supervising Physician Co-Signing Physician Notes Resident Physician Supervision Note: I interviewed and examined the patient. Discussed with Dr. Boudreaux and agree with findings and plan as documented in the note. Any exceptions or clarifications are listed here: POD#3 doing well. DC home. Instructions reviewed. Rx Percocet #10 tabs sent to pharmacy on file. 6w followup in office. Documented By: Joy Garcia DO Coding Level of Care Code None Diagnoses delivery delivered O82
== END 2024-10-21 11:05 | disposition home or self-care (01) | DRG 785 ==
LOC: OPB 15:47 → 4S1 15:48 → 4E2 23:42
PROC: M.PPTLD (2024-10-18 18:50)
DX: O13.4 Gestational [pregnancy-induced] hypertension without significant proteinuria, complicating childbirth; O09.893 Supervision of other high risk pregnancies, third trimester; R14.1 Gas pain; Z82.49 Family history of ischemic heart disease and other diseases of the circulatory system; O90.89 Other complications of the puerperium, not elsewhere classified; R14.0 Abdominal distension (gaseous); Z14.8 Genetic carrier of other disease; Z30.2 Encounter for sterilization; O34.211 Maternal care for low transverse scar from previous cesarean delivery; O32.8XX0 Maternal care for other malpresentation of fetus, not applicable or unspecified; Z37.0 Single live birth; O26.893 Other specified pregnancy related conditions, third trimester; Z79.82 Long term (current) use of aspirin; Z79.899 Other long term (current) drug therapy; Z3A.37 37 weeks gestation of pregnancy